=== PATIENT | female | born 1975 | race Caucasian/White ===

== ENCOUNTER 2016-12-21 05:01 | Emergency (ER) | payer SELFPAY ==
[2016-12-21 05:10] VITALS: BP 159/94
--- NOTE | 2016-12-21 07:19 | ER Document Report ---
ED General - General Chief Complaint: Foreign Body in Ear Stated Complaint: FOREIGN OBJECT IN EAR Time Seen by Provider: 12/21/16 07:05 Mode of Arrival: Ambulatory Information source: Patient Notes: 41-year-old female presents with complaints of foreign body in her ear. Patient feels a bug was in there she flushed it multiple times jamming the bug. Patient does not think the bug is moving still TRAVEL OUTSIDE OF THE [place] IN LAST 30 DAYS: No - HPI Onset: Just prior to arrival Onset/Duration: Sudden Quality of pain: Achy Severity: Mild Pain Level: 1 Associated symptoms: None Exacerbated by: Denies Relieved by: Denies Similar symptoms previously: No Recently seen / treated by doctor: No - Related Data Allergies/Adverse Reactions: No Known Allergies Allergy (Verified 05/18/15 15:09) Past Medical History - Social History Smoking Status: Never Smoker Cigarette use (# per day): No Chew tobacco use (# tins/day): No Smoking Education Provided: No Family History: DM - Past Medical History Cardiac Medical History: Reports: Hx Hypercholesterolemia, Hx Hypertension Endocrine Medical History: Reports: Hx Diabetes Mellitus Type 1, Hx Diabetes Mellitus Type 2 Renal/ Medical History: Denies: Hx Peritoneal Dialysis Past Surgical History: Reports: Hx Abdominal Surgery - umb hernia repair - Immunizations Hx Diphtheria, Pertussis, Tetanus Vaccination: Yes - unk Review of Systems - Review of Systems Notes: REVIEW OF SYSTEMS: CONSTITUTIONAL : Denies fever, chills, or sweats. Denies recent illness. EENT: bug in ear CARDIOVASCULAR: Denies chest pain. Denies palpitations or racing or irregular heart beat. Denies ankle edema. RESPIRATORY: Denies cough, cold, or chest congestion. Denies shortness of breath, difficulty breathing, or wheezing. GASTROINTESTINAL: Denies abdominal pain or distention. Denies nausea, vomiting , or diarrhea. Denies blood in vomitus, stools, or per rectum. Denies black, tarry stools. Denies constipation. GENITOURINARY: Denies difficulty urinating, painful urination, burning, frequency, blood in urine, or discharge. FEMALE GENITOURINARY: Denies vaginal bleeding, heavy or abnormal periods, irregular periods. Denies vaginal discharge or odor. MUSCULOSKELETAL: Denies back or neck pain or stiffness. Denies joint pain or swelling. SKIN: Denies rash, lesions or sores. HEMATOLOGIC : Denies easy bruising or bleeding. LYMPHATIC: Denies swollen, enlarged glands. NEUROLOGICAL: Denies confusion or altered mental status. Denies passing out or loss of consciousness. Denies dizziness or lightheadedness. Denies headache. Denies weakness or paralysis or loss of use of either side. Denies problems with gait or speech. Denies sensory loss, numbness, or tingling. Denies seizures. PSYCHIATRIC: Denies anxiety or stress. Denies depression, suicidal ideation, or homicidal ideation. ALL OTHER SYSTEMS REVIEWED AND NEGATIVE. PHYSICAL EXAMINATION: GENERAL: Well-appearing, well-nourished and in no acute distress. HEAD: Atraumatic, normocephalic. EYES: Pupils equal round extraocular movements intact, conjunctiva are normal. ENT: right ear bug NECK: Normal range of motion LUNGS: No respiratory distress Musculoskeletal: Normal range of motion NEUROLOGICAL: Normal speech, normal gait. PSYCH: Normal mood, normal affect. SKIN: Warm, Dry, normal turgor, no rashes or lesions noted. Dictation was performed using intelworks voice recognition software Physical Exam - Vital signs Vitals: Temp Pulse Resp BP Pulse Ox 97.6 F 89 15 159/94 H 96 12/21/16 05:06 12/21/16 05:06 12/21/16 05:06 12/21/16 05:06 12/21/16 05:06 Course - Re-evaluation Re-evalutation: 12/21/16 14:06 Abrasion of the tympanic membrane is noted, I believe this is from the patient or from the bug itself. I was able to remove the bug with flushing and with a curette. Patient was started on antibiotics and ENT follow-up After performing a Medical Screening Examination, I estimate there is LOW risk for CENTRAL CORD SYNDROME, EPIDURAL MASS LESION, SEVERE SPINAL STENOSIS, ARTERIAL DISSECTION, MENINGITIS, or ACUTE CORONARY SYNDROME, thus I consider the discharge disposition reasonable. I have reevaluated this patient multiple times and no significant life threatening changes are noted. The patient and I have discussed the diagnosis and risks, and we agree with discharging home to follow-up on an outpatient basis with the understanding that symptoms and presentations can change. We also discussed returning to the Emergency Department immediately if new or worsening symptoms occur. We have discussed the symptoms which are most concerning (e.g., saddle anesthesia, urinary or bowel incontinence or retention, changing or worsening pain) that necessitate immediate return. - Vital Signs Vital signs: Temp Pulse Resp BP Pulse Ox 97.6 F 89 15 159/94 H 96 12/21/16 05:06 12/21/16 05:06 12/21/16 05:06 12/21/16 05:06 12/21/16 05:06 Discharge - Discharge Clinical Impression: Ear pain, right Foreign body in ear Qualifiers: Encounter type: initial encounter Laterality: right Qualified Code(s): T16.1XXA - Foreign body in right ear, initial encounter Condition: Stable Disposition: HOME, SELF-CARE Instructions: Foreign Object in the Ear ([facility]) Additional Instructions: Please contact the following office for an appointment tomorrow or returm immediately if there are any other concerns [facility] Address: [address] [place] [id number] Prescriptions: Amoxicillin 875 mg PO BID #20 tablet Hydrocodone/Acetaminophen [Davidson 5-325 mg Tablet] 1 tab PO Q6 #10 tablet
== END 2016-12-21 07:30 | disposition home or self-care (01) ==
LOC: ER 05:01
DX: T16.1XXA Foreign body in right ear, initial encounter (principal); H92.01 Otalgia, right ear
CPT/HCPCS: 99282

== ENCOUNTER 2017-06-14 07:32 | Emergency (ER) | payer SELFPAY ==
[2017-06-14] MEDS ORDERED: ACETAMINOPHEN 325 MG TABLET PO ONE (08:06)
[2017-06-14] MEDS ORDERED: CLINDAMYCIN 600 MG/D5W RTU 600 MG/50 ML RTUPB IV ONE (08:07)
--- NOTE | 2017-06-14 08:08 | ER Document Report ---
ED Extremity Problem, Lower - General Chief Complaint: Skin Sore(s) Stated Complaint: LEFT TOE PAIN Time Seen by Provider: 06/14/17 07:57 Mode of Arrival: Ambulatory Information source: Patient Notes: Patient has a history of diabetes with peripheral neuropathy. Patient presents complaining of a four-day history of a blister to the plantar surface of her left great toe. Patient states that 4 days ago she popped this lesion and noticed purulent drainage. Patient states she has had purulent drainage from the wound since then. Patient denies any fever. Patient does report a history of diabetes and states she did not take her medication yesterday. TRAVEL OUTSIDE OF THE [place] IN LAST 30 DAYS: No - HPI Patient complains to provider of: Altered sensation, Pain, Swelling Location: Great Toe Occurred: Other - 4 days Where: Home Onset/Duration: Gradual Quality of pain: Achy Pain Level: 3 Recent injury: No Associated symptoms: Painful ambulation Exacerbated by: Movement, Walking Relieved by: Nothing - Related Data Allergies/Adverse Reactions: No Known Allergies Allergy (Verified 06/14/17 07:33) Past Medical History - General Information source: Patient - Social History Smoking Status: Never Smoker Frequency of alcohol use: None Drug Abuse: None Occupation: None Lives with: Family Family History: DM - Past Medical History Cardiac Medical History: Reports: Hx Hypercholesterolemia, Hx Hypertension Endocrine Medical History: Reports: Hx Diabetes Mellitus Type 1, Hx Diabetes Mellitus Type 2 Renal/ Medical History: Denies: Hx Peritoneal Dialysis Past Surgical History: Reports: Hx Abdominal Surgery - umb hernia repair - Immunizations Hx Diphtheria, Pertussis, Tetanus Vaccination: Yes - unk Review of Systems - Review of Systems Constitutional: No symptoms reported. denies: Fever, Recent illness EENT: No symptoms reported Cardiovascular: No symptoms reported Respiratory: No symptoms reported Gastrointestinal: No symptoms reported. denies: Nausea, Vomiting Genitourinary: No symptoms reported Female Genitourinary: No symptoms reported Musculoskeletal: Joint pain Skin: Other - Skin wound to the plantar surface of left great toe Hematologic/Lymphatic: No symptoms reported Neurological/Psychological: Other - Peripheral neuropathy Physical Exam - Vital signs Vitals: Temp Pulse Resp BP Pulse Ox 99.2 F 98 16 137/86 H 98 06/14/17 07:40 06/14/17 07:40 06/14/17 07:40 06/14/17 07:40 06/14/17 07:40 - General General appearance: Appears well, Alert In distress: None - HEENT Head: Normocephalic Eyes: Normal Conjunctiva: Normal Nasal: Normal Mouth/Lips: Normal Mucous membranes: Normal Neck: Normal - Respiratory Respiratory status: No respiratory distress Chest status: Nontender Breath sounds: Normal. No: Rales, Rhonchi, Stridor, Wheezing Chest palpation: Normal - Cardiovascular Rhythm: Regular Heart sounds: S1 appreciated, S2 appreciated Murmur: No Pulses: Normal: Posterior tibial, Dorsalis pedis - Back Back: Normal - Extremities General upper extremity: Normal inspection, Normal ROM General lower extremity: Tender, Edema - Left great toe tenderness, Normal ROM Ankle: Tender - Left great toe tenderness with erythema along medial aspect of left great toe, Edema, Other - Diabetic ulcer to plantar surface of left great toe. No: Ecchymosis - Neurological Neuro grossly intact: Yes Cognition: Normal Abebe Coma Scale Eye Opening: Spontaneous Abebe Coma Scale Verbal: Oriented Abebe Coma Scale Motor: Obeys Commands [place] Coma Scale Total: 15 - Psychological Associated symptoms: Normal affect, Normal mood - Skin Skin Temperature: Warm Skin Moisture: Dry Skin Color: Erythema Skin irregularity: other - Diabetic ulcer to plantar surface of left great toe Course - Re-evaluation Re-evalutation: 06/14/17 09:[address] salcido who recommends adding on MRI of the toe, CRP, sed rate and A1c 06/14/17 09:[address] Gibbons regarding patient management given finding of osteomyelitis, recommends vancomycin and Zosyn 06/14/17 11:[address] salcido regarding results of MRI as well as additional tests. Dr. salcido states that patient does not need to be admitted to orthopedic services as she does not have osteomyelitis and does not require surgery Consulted with Dr. Gibbons, discussed patient's presentation. Agrees with discharge plan of care 06/14/17 12:03 Patient was provided with referral form for the wound clinic. Patient also given outpatient resources information on where to seek assistance with obtaining her prescription medication. Patient also given the number for the [facility] for follow-up. - Vital Signs Vital signs: Temp Pulse Resp BP Pulse Ox 98.4 F 86 20 144/78 H 98 06/14/17 13:51 06/14/17 13:51 06/14/17 13:51 06/14/17 13:51 06/14/17 13:51 - Laboratory Result Diagrams: 06/14/17 08:30 06/14/17 08:30 Laboratory results interpreted by me: 06/14/17 06/14/17 06/14/17 08:30 08:30 08:30 WBC 11.2 H ESR Chloride 97 L Glucose 435 H* Hemoglobin A1c % Total Bilirubin 1.4 H AST 13 L Alkaline Phosphatase 179 H C-Reactive Protein 27.4 H 06/14/17 06/14/17 08:30 08:30 WBC ESR 50 H Chloride Glucose Hemoglobin A1c % 12.3 H Total Bilirubin AST Alkaline Phosphatase C-Reactive Protein Labs- Entire Visit 06/14/17 06/14/17 08:30 08:30 WBC 11.2 H RBC 4.97 Hgb 14.3 Hct 43.0 MCV 87 MCH 28.8 MCHC 33.3 RDW 13.8 Plt Count 371 Seg Neutrophils % 55.4 Lymphocytes % 30.2 Monocytes % 9.8 Eosinophils % 3.7 Basophils % 0.9 Absolute Neutrophils 6.2 Absolute Lymphocytes 3.4 Absolute Monocytes 1.1 Absolute Eosinophils 0.4 Absolute Basophils 0.1 Sodium 139.5 Potassium 4.3 Chloride 97 L Carbon Dioxide 27 Anion Gap 16 BUN 13 Creatinine 0.62 Est GFR ( Amer) > 60 Est GFR (Non-Af Amer) > 60 Glucose 435 H* Calcium 9.9 Total Bilirubin 1.4 H Direct Bilirubin 0.3 Neonat Total Bilirubin Not Reportable Neonat Direct Bilirubin Not Reportable Neonat Indirect Bili Not Reportable AST 13 L ALT 23 Alkaline Phosphatase 179 H Total Protein 7.9 Albumin 4.3 - Diagnostic Test Radiology reviewed: Image reviewed, Reports reviewed Discharge - Discharge Clinical Impression: Hyperglycemia Diabetic foot ulcer Qualifiers: Diabetic foot ulcer location: toe Diabetes mellitus type: type 1 Laterality: right Non-pressure ulcer stage: unspecified non-pressure ulcer stage Qualified Code(s): E10.621 - Type 1 diabetes mellitus with foot ulcer Condition: Stable Disposition: HOME, SELF-CARE Instructions: Clindamycin ([facility]), Diabetes ([facility]), Foot or Leg Ulcer ([facility]), Hyperglycemia ([facility]), Oral Narcotic Medication ([facility]) Additional Instructions: Return immediately for any new or worsening symptoms Followup with your primary care provider, call tomorrow to make a followup appointment. Your primary doctor may need to adjust her diabetic medication as you have not had good blood sugar control. Follow up with quality assurance supervisor chassis for further evaluation Follow-up with wound management, call today for an appointment Keep wound covered as it continues to heal. Check feet daily for any new or worsening symptoms Prescriptions: Clindamycin HCl [Cleocin Hcl] 300 mg PO QID #28 capsule Oxycodone HCl/Acetaminophen [Percocet 5-325 mg Tablet] 1 tab PO ASDIR PRN #15 tablet PRN Reason: Referrals: CIARRA ENRIQUEZ DPM [ACTIVE STAFF] - Follow up as needed [facility] [Provider Group] - Follow up tomorrow
[2017-06-14 08:44] LABS: ABSOLUTE BASOPHILS # (AUTO) 0.1 10^3/uL (0.0-0.2); ABSOLUTE EOSINOPHILS # (AUTO) 0.4 10^3/uL (0.0-0.6); ABSOLUTE LYMPHOCYTES (AUTO) 3.4 10^3/uL (0.5-4.7); ABSOLUTE MONOCYTES (AUTO) 1.1 10^3/uL (0.1-1.4); ABSOLUTE NEUT (AUTO) 6.2 10^3/uL (1.7-8.2); BASOPHILS % (AUTO) 0.9 % (0-2); EOSINOPHILS % (AUTO) 3.7 % (0-6); HEMOGLOBIN 14.3 g/dL (12.0-15.5); HGB HCT DIFFERENCE -0.1; LYMPHOCYTES % (AUTO) 30.2 % (13-45); MEAN CORPUSCULAR HEMOGLOBIN 28.8 pg (27.0-33.4); MEAN CORPUSCULAR HGB CONC 33.3 g/dL (32.0-36.0); MEAN CORPUSCULAR VOLUME 87 fl (80-97); MONOCYTES % (AUTO) 9.8 % (3-13); RED BLOOD COUNT 4.97 10^6/uL (3.72-5.28); RED CELL DISTRIBUTION WIDTH 13.8 % (11.5-14.0); SEGMENTED NEUTROPHILS % (AUTO) 55.4 % (42-78); WHITE BLOOD COUNT 11.2 10^3/uL (4.0-10.5)
--- NOTE | 2017-06-14 09:03 | RADIOLOGY REPORT (SQ) ---
EXAM DESCRIPTION: TOE LEFT COMPLETED DATE/TIME: 06/14/2017 8:54 am REASON FOR STUDY: diabetic foot wound COMPARISON: None. NUMBER OF VIEWS: Three views. TECHNIQUE: AP, lateral, and oblique images acquired of the left first toe. LIMITATIONS: None. FINDINGS: MINERALIZATION: Normal. BONES: Periosteal reaction along the medial margin of the base of the distal 1st phalanx. JOINTS: No effusions. SOFT TISSUES: No foreign body. OTHER: No other significant finding. IMPRESSION: Periosteal reaction, nonspecific but consistent with osteomyelitis. COMMENT: SITE OF TRAUMA/COMPLAINT MARKED/STAMP COMPLETED: YES. TECHNICAL DOCUMENTATION: JOB ID: [id number] [employer]- All Rights Reserved
[2017-06-14 09:05] LABS: ALANINE AMINOTRANSFERASE 23 U/L (9-52); ALBUMIN 4.3 g/dL (3.5-5.0); ALKALINE PHOSPHATASE 179 U/L (38-126); ANION GAP 16 (5-19); ASPARTATE AMINO TRANSFERASE 13 U/L (14-36); BILIRUBIN,DIRECT 0.3 mg/dL (0.0-0.4); BILIRUBIN,TOTAL 1.4 mg/dL (0.2-1.3); BLOOD UREA NITROGEN 13 mg/dL (7-20); CALCIUM 9.9 mg/dL (8.4-10.2); CARBON DIOXIDE 27 mmol/L (22-30); CHLORIDE 97 mmol/L (98-107); CREATININE RESULT 0.62 mg/dL (0.52-1.25); POTASSIUM 4.3 mmol/L (3.6-5.0); SODIUM 139.5 mmol/L (137-145); TOTAL PROTEIN 7.9 g/dL (6.3-8.2)
[2017-06-14 09:21] LABS: GLUCOSE 435 mg/dL (75-110)
[2017-06-14] MEDS ORDERED: INSULIN REG, HUMAN 100 UNIT/ML 3 ML VIAL (PYX) SUBCUT ONE (09:26)
[2017-06-14] MEDS ORDERED: VANCOMYCIN HCL INJ 1000 MG VIAL IV ONE (09:28)
[2017-06-14 09:29] LABS: ADD ON TESTING BLD IN LAB ACKNOWLEDGE
[2017-06-14] MEDS ORDERED: PIPERACILLIN/TAZOBACTAM 3.375 GM VIAL IV ONE (09:30)
[2017-06-14 09:50] LABS: C-REACTIVE PROTEIN 27.4 mg/L (<10.0)
--- NOTE | 2017-06-14 11:10 | RADIOLOGY REPORT (SQ) ---
EXAM DESCRIPTION: MRI LT LOWER EXTREMITY WITHOUT COMPLETED DATE/TIME: 06/14/2017 10:41 am REASON FOR STUDY: diabetic foot wound, L gr toe COMPARISON: None. TECHNIQUE: Multiplanar imaging of the left forefoot to include fat and fluid sensitive sequences. LIMITATIONS: None. FINDINGS: BONE MARROW: No marrow signal alteration. Specifically no marrow replacement or marrow ed faheem. No evidence for osteomyelitis. No cortical break through. SOFT TISSUES: Skin ulcer plantar aspect of the great toe. No abscess. OTHER: No other significant finding. IMPRESSION: NO EVIDENCE FOR OSTEOMYELITIS. TECHNICAL DOCUMENTATION: JOB ID: [id number] [employer]- All Rights Reserved
[2017-06-14 13:52] VITALS: BP 144/78
== END 2017-06-14 13:53 | disposition home or self-care (01) ==
LOC: ER 07:32
DX: E10.65 Type 1 diabetes mellitus with hyperglycemia (principal); E10.621 Type 1 diabetes mellitus with foot ulcer; E78.00 Pure hypercholesterolemia, unspecified; I10 Essential (primary) hypertension
CPT/HCPCS: 99284; 96365; 96367; 36415; 87040; 87070; 87205; 85025; 85652; 86140; 87077; 80053; 87186; 83036; 73718; 73660; J1815; J3370; J2543

== ENCOUNTER 2018-09-04 10:49 | Emergency (ER) | payer SELFPAY ==
[2018-09-04 10:54] VITALS: BP 137/85
--- NOTE | 2018-09-04 11:04 | ER Document Report ---
ED Medical Screen (RME) - General Chief Complaint: Foot Pain Stated Complaint: FOOT PAIN Time Seen by Provider: 09/04/18 11:02 Mode of Arrival: Ambulatory Information source: Patient TRAVEL OUTSIDE OF THE [place] IN LAST 30 DAYS: No - HPI Patient complains to provider of: foot infection Onset: Yesterday - ptt is IDDM with c/o ulcer on side of L foot -- getting worse - Related Data Allergies/Adverse Reactions: No Known Allergies Allergy (Verified 09/04/18 10:50) Past Medical History - Past Medical History Cardiac Medical History: Reports: Hx Hypercholesterolemia, Hx Hypertension Endocrine Medical History: Reports: Hx Diabetes Mellitus Type 1, Hx Diabetes Mellitus Type 2 Renal/ Medical History: Denies: Hx Peritoneal Dialysis Past Surgical History: Reports: Hx Abdominal Surgery - umb hernia repair - Immunizations Hx Diphtheria, Pertussis, Tetanus Vaccination: Yes - unk Physical Exam - Vital signs Vitals: Temp Pulse Resp BP Pulse Ox 99.3 F 96 16 137/85 H 96 09/04/18 10:53 09/04/18 10:53 09/04/18 10:53 09/04/18 10:53 09/04/18 10:53 Course - Vital Signs Vital signs: Temp Pulse Resp BP Pulse Ox 99.3 F 96 16 137/85 H 96 09/04/18 10:53 09/04/18 10:53 09/04/18 10:53 09/04/18 10:53 09/04/18 10:53
--- NOTE | 2018-09-04 11:48 | RADIOLOGY REPORT (SQ) ---
EXAM DESCRIPTION: FOOT LEFT COMPLETE COMPLETED DATE/TIME: 09/04/2018 11:35 am REASON FOR STUDY: cellulitis COMPARISON: 06/14/2017. NUMBER OF VIEWS: Three views. TECHNIQUE: AP, lateral and oblique without weight bearing radiographic images acquired of the left f oot. LIMITATIONS: None. FINDINGS: MINERALIZATION: Normal. BONES: No acute fracture or dislocation. No worrisome bone lesions. Plantar calcaneal spur. JOINTS: No erosions. No rickey-articular osteopenia. No chondrocalcinosis. SOFT TISSUES: Focal soft tissue swelling adjacent to the toe with superficial ulceration. No radiopa que foreign body. No calcifications. OTHER: No other significant finding. IMPRESSION: SOFT TISSUE SWELLING AND SUPERFICIAL ULCERATION ADJACENT TO THE 5TH TOE. NO SIGNIFICANT BONY FINDINGS TECHNICAL DOCUMENTATION: JOB ID: [id number]- All Rights Reserved Reading location - IP/workstation name: [email or web address]
[2018-09-04 11:51] LABS: ABSOLUTE BASOPHILS # (AUTO) 0.1 10^3/uL (0.0-0.2); ABSOLUTE EOSINOPHILS # (AUTO) 0.2 10^3/uL (0.0-0.6); ABSOLUTE LYMPHOCYTES (AUTO) 2.3 10^3/uL (0.5-4.7); ABSOLUTE MONOCYTES (AUTO) 1.4 10^3/uL (0.1-1.4); ABSOLUTE NEUT (AUTO) 11.3 10^3/uL (1.7-8.2); BASOPHILS % (AUTO) 0.8 % (0-2); EOSINOPHILS % (AUTO) 1.2 % (0-6); HEMATOCRIT 39.9 % (36.0-47.0); HEMOGLOBIN 13.3 g/dL (12.0-15.5); LYMPHOCYTES % (AUTO) 14.9 % (13-45); MEAN CORPUSCULAR HEMOGLOBIN 28.3 pg (27.0-33.4); MEAN CORPUSCULAR HGB CONC 33.4 g/dL (32.0-36.0); MEAN CORPUSCULAR VOLUME 85 fl (80-97); MONOCYTES % (AUTO) 9.2 % (3-13); PLATELET COUNT 315 10^3/uL (150-450); RED CELL DISTRIBUTION WIDTH 14.5 % (11.5-14.0); SEGMENTED NEUTROPHILS % (AUTO) 73.9 % (42-78); TOTAL CELLS COUNTED % (AUTO) 100 %; WHITE BLOOD COUNT 15.3 10^3/uL (4.0-10.5)
[2018-09-04 12:07] LABS: ALANINE AMINOTRANSFERASE 17 U/L (9-52); ALKALINE PHOSPHATASE 136 U/L (38-126); ANION GAP 11 (5-19); ASPARTATE AMINO TRANSFERASE 11 U/L (14-36); BILIRUBIN,DIRECT 0.1 mg/dL (0.0-0.4); BILIRUBIN,TOTAL 1.3 mg/dL (0.2-1.3); BLOOD UREA NITROGEN 10 mg/dL (7-20); CALCIUM 9.7 mg/dL (8.4-10.2); CARBON DIOXIDE 30 mmol/L (22-30); CHLORIDE 99 mmol/L (98-107); GLUCOSE 322 mg/dL (75-110); POTASSIUM 4.1 mmol/L (3.6-5.0); SODIUM 139.7 mmol/L (137-145); TOTAL PROTEIN 7.7 g/dL (6.3-8.2)
[2018-09-04] MEDS ORDERED: CLINDAMYCIN 900 MG/D5W RTU 900 MG/50 ML RTUPB IV ONE (14:32)
[2018-09-04] MEDS ORDERED: CIPROFLOXACIN 400 MG/D5W RTU 400 MG/200 ML RTUPB IV ONE (14:32)
[2018-09-04] MEDS ORDERED: NORMAL SALINE 1000 ML 1,000 ML IV ONE (14:33)
[2018-09-04] MEDS ORDERED: ONDANSETRON 4 MG TAB.RAPDIS PO ONE (14:34)
--- NOTE | 2018-09-04 14:38 | ER Document Report ---
ED General - General Chief Complaint: Foot Pain Stated Complaint: FOOT PAIN Time Seen by Provider: 09/04/18 11:02 Mode of Arrival: Ambulatory Information source: Patient TRAVEL OUTSIDE OF THE [place] IN LAST 30 DAYS: No - HPI Patient complains to provider of: Diabetic foot ulcers Onset: Other - Ongoing for weeks Onset/Duration: Gradual, Persistent Quality of pain: No pain Severity: None Associated symptoms: denies: Chills, Fever Exacerbated by: Denies Relieved by: Denies Similar symptoms previously: No Recently seen / treated by doctor: No Notes: Patient is a 42-year-old female with type 1 diabetes who comes in today to be evaluated for evolving left foot diabetic ulcers. Apparently she h as had 2 ulcers that have developed on the same foot prior to this 1. She has not sought any wound management for this specifically. She goes to a local clinic who helps her manage her diabetes but has not had the ulcers addressed. She is got one large ulcer which is on the first MTP joint on the plantar surface. There is another large ulcer on the plantar surface of the distal phalanx of the left great toe and then there is a developing ulcer on the dorsum of the left foot at the first MTP joint laterally. There is local redness and heat. Patient has no fevers or chills. She has been nauseous and vomiting a little bit. No shortness of breath. - Related Data Allergies/Adverse Reactions: No Known Allergies Allergy (Verified 09/04/18 10:50) Past Medical History - General Information source: Patient - Social History Smoking Status: Never Smoker Family History: Reviewed & Not Pertinent, DM Patient has suicidal ideation: No Patient has homicidal ideation: No - Past Medical History Cardiac Medical History: Reports: Hx Hypercholesterolemia, Hx Hypertension Endocrine Medical History: Reports: Hx Diabetes Mellitus Type 1, Hx Diabetes Mellitus Type 2 Renal/ Medical History: Denies: Hx Peritoneal Dialysis Past Surgical History: Reports: Hx Abdominal Surgery - umb hernia repair - Immunizations Hx Diphtheria, Pertussis, Tetanus Vaccination: Yes - unk Review of Systems - Review of Systems Notes: Constitutional: No fevers. No chills. EENT: No eye redness. No eye pain. No ear pain. No sore throat. Cardiovascular: No chest pain. No palpitations. Respiratory: No cough. No shortness of breath. No respiratory distress. Gastrointestinal: No abdominal pain. No nausea, vomiting, or diarrhea. Genitourinary: Atraumatic. No lesions. No pain. No discharge. Musculoskeletal: Atraumatic. No swelling. No deformities. Skin: Positive for ulcers on the left foot and toes, positive for redness and warmth and swelling left foot Lymphatic: No swollen lymph nodes. Neurologic: No headache. No syncope. Psychiatric: No suicidal or homicidal ideation. Physical Exam - Vital signs Vitals: Temp Pulse Resp BP Pulse Ox 99.3 F 96 16 137/85 H 96 09/04/18 10:53 09/04/18 10:53 09/04/18 10:53 09/04/18 10:53 09/04/18 10:53 - Notes Notes: General: Well-developed, well-nourished. In no acute distress. Non-toxic appearing. Cardiac: Well-perfused. Regular rate and rhythm. No murmurs, rubs, or gallops. Pulmonary: No respiratory distress. No cyanosis. Bilateral lung fiels are clear to auscultation. Abdominal: Non-distended. Non-rigid. Bowels sounds are present in all four quadrants. No guarding or rebound. HEENT: Head is atraumatic. Conjunctivae not reddened. No tearing. PERRL. EOMI. Orbits atraumatic. No periorbital swelling or erythema. Oropharynx is without erythema, swelling, or exudates. Neck: Supple. No adenopathy. No meningismus. Dermatologic: Warm with good turgor. No rash. Atraumatic. Chest: Atraumatic. No chest wall tenderness to palpation. Musculoskeletal: Moves all extremities well. No range of motion deficits. no muscular or joint tenderness. No paraspinal muscle tenderness. no midline spinal tenderness or step-off. Diabetic foot ulcers to the distal phalanx of the left great toe plantar surface, left 1st MTP joint plantar surface, and developing ulcer left dorsal foot first MTP lateral aspect there is no foul-smelling purulent drainage. There is local erythema and warmth to the areas around the first through fourth toes in the distal foot. There is no lymphangitis. No abscesses to drain. Genitourinary: Examination deferred Neurologic: No gross neurologic deficits. Psychiatric: Normal mood. Course - Re-evaluation Re-evalutation: 09/04/18 14:41 Patient has multiple diabetic foot ulcers on the left foot. None of them require emergent treatment. She is not running a fever or chills. Does not look toxic. Her labs are not indicative of a diabetic ketoacidosis. In any event she is got a cellulitis developing in the left distal foot which will need to be followed closely. We will start with empiric therapy of clindamycin and ciprofloxacin IV here. We will culture the wound. We will get blood cultures. Patient will need to be referred to the [facility] wound care clinic for further treatment of these ulcers. - Vital Signs Vital signs: Temp Pulse Resp BP Pulse Ox 99.3 F 96 16 137/85 H 96 09/04/18 10:53 09/04/18 10:53 09/04/18 10:53 09/04/18 10:53 09/04/18 10:53 - Laboratory Result Diagrams: 09/04/18 11:39 09/04/18 11:39 Laboratory results interpreted by me: 09/04/18 09/04/18 11:39 11:39 WBC 15.3 H RDW 14.5 H Absolute Neutrophils 11.3 H Creatinine 0.50 L Glucose 322 H AST 11 L Alkaline Phosphatase 136 H Discharge - Discharge Clinical Impression: Cellulitis of foot Diabetic foot ulcers Qualifiers: Diabetic foot ulcer location: unspecified part of foot Diabetes mellitus type: other specified (including ELROY) Laterality: left Non-pressure ulcer stage: unspecified non-pressure ulcer stage Qualified Code(s): E13.621 - Other specified diabetes mellitus with foot ulcer; L97.529 - Non-pressure chronic ulcer of other part of left foot with unspecified severity Condition: Good Disposition: HOME, SELF-CARE Instructions: Foot or Leg Ulcer ([facility]), Cellulitis ([facility]), Hyperglycemia ([facility]) Additional Instructions: You have been given instructions to follow-up with the [facility] wound care clinic. You have been given prescriptions for antibiotics that she need to start taking tonight at least the first dose of each 1. You need to take both antibiotics as directed for the next 10 days. If you have not seen the wound care clinic in the next 2 days, you need to return to the ER for recheck of your infection. It is extra important to be careful with your carbohydrate consumption as the infection will tend to drive up your blood sugar. You can take Zofran as needed for nausea. Prescriptions: Ciprofloxacin HCl [Cipro 500 mg Tablet] 500 mg PO BID 10 Days #20 tablet Clindamycin HCl 300 mg PO QID 10 Days #40 capsule Ondansetron [Zofran Odt 4 mg Tablet] 1 - 2 tab PO Q4H PRN #15 tab.rapdis PRN Reason: For Nausea/Vomiting Referrals: [facility] [employer] REPAIRER [ALLIED HEALTH PROFESSIONAL] - 09/06/18
== END 2018-09-04 16:40 | disposition home or self-care (01) ==
LOC: ER 10:49
DX: E10.621 Type 1 diabetes mellitus with foot ulcer (principal); L97.529 Non-pressure chronic ulcer of other part of left foot with unspecified severity; L03.116 Cellulitis of left lower limb; I10 Essential (primary) hypertension
CPT/HCPCS: 99283; 96365; 96368; 36415; 87040; 87070; 87205; 85025; 87077; 80053; 87186; 73630; S0119; J7030; J0744

== ENCOUNTER 2018-09-06 13:58 | Emergency (ER) | payer SELFPAY ==
[2018-09-06 15:45] VITALS: BP 144/83
--- NOTE | 2018-09-06 21:18 | ER Document Report ---
Entered by ALICE GOMEZ SCRIBE 09/06/18 [id number] Acting as scribe for:ZHEN RANKIN DO ED Wound - General Chief Complaint: Wound Infection Stated Complaint: FOOT PAIN Time Seen by Provider: 09/06/18 15:12 Primary Care Provider: [facility] [Provider Group] - Follow up as needed Wound Care [Provider Group] - Follow up as needed Mode of Arrival: Ambulatory Information source: Patient Notes: Patient is a 42 year old female with diabetes presents to the emergency department for a wound check on the left foot. Patient states she presented to the emergency department 2 days ago complaining of right foot redness and was discharged home with Cipro and Clindamycin after being diagnosed with diabetic ulcers and an staph infection. She states the redness and swelling has improved since her last visit. She also reports an slightly elevated blood sugar recently running in the 300s. She states she normally takes 75 units of insulin in the evenings. TRAVEL OUTSIDE OF THE [place] IN LAST 30 DAYS: No - Related Data Allergies/Adverse Reactions: No Known Allergies Allergy (Verified 09/06/18 13:59) Past Medical History - General Information source: Patient - Social History Smoking Status: Never Smoker Cigarette use (# per day): No Chew tobacco use (# tins/day): No Smoking Education Provided: No Frequency of alcohol use: None Family History: Reviewed & Not Pertinent, DM Patient has suicidal ideation: No Patient has homicidal ideation: No - Past Medical History Cardiac Medical History: Reports: Hx Hypercholesterolemia, Hx Hypertension Endocrine Medical History: Reports: Hx Diabetes Mellitus Type 1, Hx Diabetes Mellitus Type 2 Past Surgical History: Reports: Hx Abdominal Surgery - umb hernia repair - Immunizations Hx Diphtheria, Pertussis, Tetanus Vaccination: Yes - unk Review of Systems - Review of Systems Constitutional: No symptoms reported EENT: No symptoms reported Cardiovascular: No symptoms reported Respiratory: No symptoms reported Gastrointestinal: No symptoms reported Genitourinary: No symptoms reported Female Genitourinary: No symptoms reported Musculoskeletal: See HPI Skin: See HPI Hematologic/Lymphatic: No symptoms reported Neurological/Psychological: No symptoms reported -: Yes All other systems reviewed and negative Physical Exam - Vital signs Vitals: Temp Pulse Resp BP Pulse Ox 99.6 F 96 18 179/94 H 96 09/06/18 14:12 09/06/18 14:12 09/06/18 14:12 09/06/18 14:12 09/06/18 14:12 Interpretation: Hypertensive - Notes Notes: GENERAL: Alert, interacts well. No acute distress. HEAD: Normocephalic, atraumatic. EYES: Pupils equal, round, and reactive to light. Extraocular movements intact. ENT: Oral mucosa moist, tongue midline. NECK: Full range of motion. Supple. Trachea midline. LUNGS: Clear to auscultation bilaterally, no wheezes, rales, or rhonchi. No respiratory distress. HEART: Regular rate and rhythm. No murmurs, gallops, or rubs. ABDOMEN: Soft, non-tender. Non-distended. Bowel sounds present in all 4 quadra nts. No guarding, rigidity, or rebound. EXTREMITIES: Moves all 4 extremities spontaneously. NEUROLOGICAL: Alert and oriented x3. Normal speech. PSYCH: Normal affect, normal mood. SKIN: Warm. Erythema to the dorsal aspect of left foot, minimal erythema to the plantar aspect of left foot. There are 3 diabetic ulcers, one located on the plantar aspect underneath the great toe, not tender to palpation, no active draining. The second is located on the plantar aspect of left foot, underneath the 5th MTP joint, not tender to palpation, no active drainage. The 3rd ulcer is located on the lateral aspect of 5th MTP joint, wet, no active drainage. Erythema is worse on the plantar aspect and tracks down to the base of the 5th metatarsal but does not extend to the level of the lateral malleolus. No lymphangitic streaking. Course - Re-evaluation Re-evalutation: 09/06/18 15:28 Patient states that the redness and the swelling has decreased, feels that it is improved from prior visit, comparing what I see today to the description in the prior visit her foot does appear improved. Patient is denying fevers. I do think the patient is improving, swab from the wound reveals MSSA, patient is already taking appropriate antibiotics as this is susceptible to Levaquin and she is on Cipro. MSSA also tends to be susceptible to clindamycin which she has already been started on. Counseled patient on continue to keep her foot elevated, proper diabetic foot care, following up with the wound care clinic, she has an appointment with them in 2 weeks as well as keeping her follow-up appointment with [facility] in the next week. Patient will return for fevers or increasing erythema. Patient is also been advised to increase her evening insulin from 75 units to 80 units every time she wakes up with a sugar above 300. - Vital Signs Vital signs: Temp Pulse Resp BP Pulse Ox 98.7 F 94 18 144/83 H 95 09/06/18 15:41 09/06/18 15:41 09/06/18 15:41 09/06/18 15:41 09/06/18 15:41 Discharge - Discharge Clinical Impression: Cellulitis of foot Diabetic foot ulcers Qualifiers: Diabetic foot ulcer location: toe Diabetes mellitus type: type 2 Laterality: left Non-pressure ulcer stage: limited to breakdown of skin Qualified Code(s): E11.621 - Type 2 diabetes mellitus with foot ulcer; L97.521 - Non-pressure chronic ulcer of other part of left foot limited to breakdown of skin Condition: Stable Disposition: HOME, SELF-CARE Additional Instructions: I am pleased to see that your foot appears to be improving. It is not completely healed yet, this will take a long time. As long as the redness and the swelling continues to decrease you may continue to take the antibiotics at home and follow-up with wound care and [facility] clinic as an outpatient. If the redness increases, the swelling increases or you develop a temperature of 100.4 or higher please return to the emergency department as you may need IV antibiotics or you may need to be admitted. Please wash your foot with soap and water twice a day and pat it dry. Please make sure that it is completely dry including between your toes. Please use a clean towel to dry her foot. After this infection is healed you should consider applying an anti-athlete's foot ointment to your foot twice a day to fight any yeast infection between your toes. Keep your blood sugar under control will help to fight the infection and prevent future infections. You told me you take 75 units of insulin every evening. Any morning that you wake up with your blood sugar higher than 300 please increase your insulin to 80 units in the evening instead of 75 units. Referrals: [facility] [Provider Group] - Follow up as needed Wound Care [Provider Group] - Follow up as needed Scribe Attestation: 09/06/18 21:17 I personally performed the services described in the documentation, reviewed and edited the documentation which was dictated to the scribe in my presence, and it accurately records my words and actions. I personally performed the services described in the documentation, reviewed and edited the documentation which was dictated to the scribe in my presence, and it accurately records my words and actions.
== END 2018-09-06 15:45 | disposition home or self-care (01) ==
LOC: ER 13:58
DX: L03.119 Cellulitis of unspecified part of limb (principal); B95.61 Methicillin susceptible Staphylococcus aureus infection as the cause of diseases classified elsewhere; E11.621 Type 2 diabetes mellitus with foot ulcer; L97.521 Non-pressure chronic ulcer of other part of left foot limited to breakdown of skin; L97.529 Non-pressure chronic ulcer of other part of left foot with unspecified severity; Z79.4 Long term (current) use of insulin; I10 Essential (primary) hypertension
CPT/HCPCS: 99282